=== PATIENT | male | born 1995 | race Caucasian/White ===

== ENCOUNTER 2018-08-17 21:56 | Emergency (ER) | payer OTHER ==
[2018-08-17] MEDS ORDERED: PERCOCET 5/325 PO ONE (22:12)
[2018-08-17] MEDS ORDERED: ZOFRAN ODT PO ONE (22:13)
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
[2018-08-18 00:36] VITALS: BP 108/60
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
== END 2018-08-18 02:00 | disposition home or self-care (01) ==
LOC: ED 21:56
DX: S01.112A Laceration without foreign body of left eyelid and periocular area, initial encounter (principal); S73.101A Unspecified sprain of right hip, initial encounter; S09.90XA Unspecified injury of head, initial encounter; V49.9XXA Car occupant (driver) (passenger) injured in unspecified traffic accident, initial encounter; Y93.89 Activity, other specified; Y92.410 Unspecified street and highway as the place of occurrence of the external cause; Y99.8 Other external cause status
CPT/HCPCS: 70450; 70486; 72125; Q0162

== ENCOUNTER 2020-04-27 09:57 | Observation (INO) | payer SELFPAY ==
[~2020-04-27 09:57] MED LIST: PHENYLEPHRINE/NS 1,000 MCG/10 ML SYRINGE (OR USE) IV ONE
[2020-04-27] MEDS ORDERED: ONDANSETRON 4 MG/2 ML INJ IV ONE (10:18)
[2020-04-27] MEDS ORDERED: SODIUM CHLORIDE 0.9% 1000 ML 1,000 ML IV ONE (10:18)
[2020-04-27] MEDS ORDERED: MORPHINE 4 MG/1 ML INJ IV ONE (10:18)
[2020-04-27 10:52] LABS: Hematocrit 44.8 % (35.5-45.6); Hemoglobin 15.4 gm/dl (11.8-15.2); Mean Corpuscular HGB Conc 34 % (32-34); Mean Corpuscular Volume 92 fl (84-94); Platelet Count 230 K/mm3 (140-440); Red Blood Count 4.87 M/mm3 (3.65-5.03); Red Cell Distribution Width 12.2 % (13.2-15.2)
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
[2020-04-27 10:55] LABS: Bacteria,Urine 1+ /HPF (Negative); Bilirubin,Urine NEG (Negative); Blood,Urine NEG (Negative); Color,Urine Yellow (Yellow); Mucus,Urine FEW /HPF; Protein,Urine <15 mg/dL mg/dL (Negative); Urobilinogen,Urine < 2.0 mg/dL (<2.0)
[2020-04-27] MEDS ORDERED: HYDROmorphone 1 MG/1 ML INJ IV ONE (11:03)
[2020-04-27 11:12] LABS: Alanine Aminotransferase 16 units/L (7-56); Albumin 4.6 g/dL (3.9-5); BUN/Creatinine Ratio 17; Blood Urea Nitrogen 17 mg/dL (9-20); Calcium 9.6 mg/dL (8.4-10.2); Hemolysis Index 41
--- NOTE | 2020-04-27 12:24 | Cat Scan Report ---
CT ABDOMEN AND PELVIS WITH IV CONTRAST INDICATION: generalized lower abd pain. COMPARISON: None available. TECHNIQUE: Axial CT images were obtained through the abdomen and pelvis after 100 mL IV contrast. All CT scans a t this location are performed using CT dose reduction for ALARA by means of automated exposure contro l. FINDINGS -- ABDOMEN: Lung Bases: No acute abnormality. Liver: Normal. Gallbladder: Normal. Bile Ducts: Normal. Pancreas: Normal. Spleen: Normal. Adrenals: Normal. Right Kidney and Proximal Ureter: Normal. Left Kidney and Proximal Ureter: Normal. Stomach and Bowel: Normal. Lymph Nodes: No significant adenopathy. Aorta: No significant abnormality. IVC: Normal. Additional Findings: None. FINDINGS -- PELVIS: Urinary Bladder and Distal Ureters: Normal. Reproductive Organs: No acute abnormality. Appendix: Acute appendicitis with significant inflammation of the appendix.. Bowel: No acute abnorma lity. Large stool burden identified throughout the colon. Free Fluid: None. Lymph Nodes: No significant adenopathy. Additional Findings: None. Skeletal System: No acute abnormality. IMPRESSION: Acute appendicitis without evidence of abscess at this time. Signer Name: Satnam Boland MD Signed: 04/27/2020 12:20 PM Workstation Name: [id number]
[2020-04-27] MEDS ORDERED: PIPERACIL/TAZOBACTA 4.5/NS 100 4.5 GM/100 ML VIAL IV ONE (12:25)
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
[2020-04-27] MEDS ORDERED: MORPHINE 4 MG/1 ML INJ IV PRN (13:39)
--- NOTE | 2020-04-27 13:44 | History and Physical Report ---
History of Present Illness Chief complaint: My stomach hurts History of present illness: 25 YO Male with Nicotine Dependence presents to ED for evaluation. Patient states that he has experienced abdominal pain that began approximately 6 hours prior to arrival. Patient states that pain is 10/10, constant, worsened with movement, relieved somewhat with rest, localized to the lower pelvic region, nonradiating. Patient transported to [facility] via private vehicle for further care and evaluation of the aforementioned symptoms. Patient seen and evaluated in the emergency department. All lab and imaging studies reviewed. Patient underwent CT scan of the abdomen and pelvis which revealed acute appendicitis. Patient also found to have lab findings consistent with systemic inflammatory response syndrome. Surgical team consulted in ED. Patient is pending surgical intervention. Patient placed in observation status and admitted to surgical floor for surgical intervention. Patient denies fever, chills, chest pain, palpitations, productive cough, skin rash, recent ill contacts, ingestion of food/water from new or different sources, or known exposure to COVID-19. No medication listed at time of admission for reconciliation. No prior admission for review. Past History Past Medical History: other (See HPI) Past Surgical History: No surgical history, Other (Reviewed) Social history: single, smoking Family history: no significant family history, other (Reviewed) Medications and Allergies Allergies Allergy/AdvReac Type Severity Reaction Status Date / Time No Known Allergies Allergy Unverified 08/17/18 22:29 Home Medications Medication Instructions Recorded Confirmed Last Taken Type No Known Home Medications [No 04/27/20 04/27/20 Unknown History Reported Home Medications] Active Meds: Active Medications Acetaminophen (Tylenol) 650 mg PO Q4H PRN PRN Reason: Pain MILD(1-3)/Fever >100.5/ROSAS Albuterol (Proventil) 2.5 mg IH Q4HRT PRN PRN Reason: Shortness Of Breath Sodium Chloride (Nacl 0.9% 1000 Ml) 1,000 mls @ 125 mls/hr IV DIRECT PARMINEDR Morphine Sulfate (Morphine) 2 mg IV Q6H PRN PRN Reason: Pain , Severe (7-10) Ondansetron HCl (Zofran) 4 mg IV Q8H PRN PRN Reason: Nausea And Vomiting Oxycodone/Acetaminophen (Percocet 5/325) 1 tab PO Q6H PRN PRN Reason: Pain, Moderate (4-6) Sodium Chloride (Sodium Chloride Flush Syringe 10 Ml) 10 ml IV BID PARMINDER Sodium Chloride (Sodium Chloride Flush Syringe 10 Ml) 10 ml IV PRN PRN PRN Reason: LINE FLUSH Review of Systems Constitutional: no weight loss, no weight gain, no fever, no chills Ears, nose, mouth and throat: no ear pain, no ear discharge, no decreased hearing, no nose pain, no nasal discharge Cardiovascular: no chest pain, no orthopnea, no palpitations, no edema Respiratory: no cough, no hemoptysis, no shortness of breath Gastrointestinal: abdominal pain, no nausea, no vomiting, no diarrhea, no constipation, no BRBPR, no melena, no hematochezia, no early satiety Genitourinary Male: no hematuria, no flank pain, no urinary frequency, no urinary hesitancy Rectal: no pain, no incontinence, no bleeding Musculoskeletal: no neck stiffness, no neck pain, no shooting arm pain, no arm numbness/tingling, no low back pain, no shooting leg pain Integumentary: no rash, no pruritis, no redness, no sores, no wounds, no jaundice Neurological: no head injury, no transient paralysis, no weakness, no parathesias, no numbness, no tingling, no seizures, no syncope Psychiatric: no anxiety, no memory loss, no sleep disturbances, no hypersomnia, no change in appetite, no disorientation Endocrine: no cold intolerance, no heat intolerance, no polydipsia, no polyuria Hematologic/Lymphatic: no easy bruising, no easy bleeding, no lymphadenopathy, no lymphedema Allergic/Immunologic: no urticaria, no allergic rhinitis, no wheezing, no anaphylaxis Exam - Constitutional Vitals: Temp Pulse Resp BP Pulse Ox 97.5 F L 81 18 113/73 100 04/27/20 10:02 04/27/20 10:02 04/27/20 10:02 04/27/20 10:02 04/27/20 10:02 General appearance: Present: mild distress - EENT Eyes: Present: PERRL ENT: hearing intact, clear oral mucosa - Neck Neck: Present: supple, normal ROM - Respiratory Respiratory effort: normal Respiratory: bilateral: CTA - Cardiovascular Heart Sounds: Present: S1 & S2. Absent: rub, click - Extremities Extremities: pulses symmetrical, No edema Peripheral Pulses: within normal limits - Abdominal General gastrointestinal: Present: soft, non-tender, tender, normal bowel sounds Localized gastrointestinal: tender: suprapubic Male genitourinary: Present: normal - Integumentary Integumentary: Present: clear, warm, dry - Musculoskeletal Musculoskeletal: gait normal, strength equal bilaterally - Psychiatric Psychiatric: appropriate mood/affect, intact judgment & insight - Neurologic Neurologic: CNII-XII intact, moves all extremities Results - Labs CBC & Chem 7: 04/27/20 10:22 04/27/20 10:22 Labs: Abnormal lab results 04/27/20 04/27/20 Range/Units 10:22 10:22 WBC 14.8 H (4.5-11.0) K/mm3 Hgb 15.4 H (11.8-15.2) gm/dl RDW 12.2 L (13.2-15.2) % Sodium 134 L (137-145) mmol/L Glucose 116 H (75-100) mg/dL Assessment and Plan - Patient Problems (1) Acute appendicitis Current Visit: Yes Status: Acute Qualifiers: Acute appendicitis type: with localized peritonitis Appendicitis gangrene presence: without gangrene Appendicitis perforation presence: without perforation Appendicitis abscess presence: without abscess Qualified Code(s): K35.30 - Acute appendicitis with localized peritonitis, without perforation or gangrene Plan to address problem: IV antibiotic therapy, bowel rest, CT scan abdomen and pelvis, CBC, CMP, IV fluid resuscitation therapy, pain control, supportive care. Surgical team consulted in ED for surgical intervention. Empiric IV antibiotic therapy in emergency department. (2) Systemic inflammatory response syndrome Current Visit: Yes Status: Acute Plan to address problem: CBC, CMP, CT scan abdomen and pelvis, urinalysis, IV antibiotic therapy, supportive care. (3) DVT prophylaxis Current Visit: Yes Status: Acute Plan to address problem: SCD to bilateral lower extremities while in bed, patient is ambulatory.
[2020-04-27] MEDS ORDERED: ACETAMINOPHEN 325 MG TAB PO PRN (14:00)
[2020-04-27] MEDS ORDERED: SODIUM CHLORIDE 0.9% 1000 ML 1,000 ML IV SCH (14:30)
[2020-04-27] MEDS ORDERED: ONDANSETRON 4 MG/2 ML INJ IV PRN ×2 (14:30→18:54)
[2020-04-27] MEDS ORDERED: oxyCODONE /ACETAMINOPHEN 5-325MG TAB PO PRN (14:30)
--- NOTE | 2020-04-27 14:30 | Anesthesia Consultation ---
Anesthesia Consult and Med Hx Date of service: 04/27/20 - Airway Anesthetic Teeth Evaluation: Good ROM Head & Neck: Adequate Mental/Hyoid Distance: Adequate Mallampati Class: Class I Intubation Access Assessment: Good - Pulmonary Exam CTA: Yes - Pre-Operative Health Status ASA Pre-Surgery Classification: ASA2, Emergency Proposed Anesthetic Plan: General - Pulmonary Hx Smoking: Yes (1ppd; Marijuana) Hx Asthma: No Hx Respiratory Symptoms: No Hx Sleep Apnea: No - Cardiovascular System Hx Hypertension: No Hx Heart Attack/AMI: No Hx Angina: No Hx Pacemaker: No Hx Internal Defibrillator: No - Central Nervous System Hx Neuromuscular Disorder: No Hx Seizures: No Hx Psychiatric Problems: No - Gastrointestinal Hx Ulcer: No Hx Gastroesophageal Reflux Disease: No - Endocrine Hx Renal Disease: No Hx Liver Disease: No Hx Insulin Dependent Diabetes: No Hx Non-Insulin Dependent Diabetes: No Hx Thyroid Disease: No - Hematic Hx Anemia: No - Other Systems Hx Alcohol Use: Yes (Beer- occasionally) Hx Substance Use: Yes (Marijuana- last taken 3 weeks ago) Hx Obesity: No - Additional Comments Anesthesia Medical History Comments: Patient denied previous anethesia related complications
[2020-04-27] MEDS ORDERED: KETOROLAC 30 MG/1 ML INJ ONE ×2 (14:36→20:20)
--- NOTE | 2020-04-27 14:44 | Anesthesia Day of Surgery ---
Anesthesia Day of Surgery - Day of Surgery Patient Examined: Yes Patient H&P Reviewed: Yes Patient is NPO: Yes Beta Blockers: No Cardiac Clearance: No Pulmonary Clearance: No
[2020-04-27] MEDS ORDERED: ALBUTEROL 2.5 MG/3 ML NEBU IH PRN (16:00)
[2020-04-27] MEDS ORDERED: MORPHINE 2 MG/1 ML INJ ONE (17:30)
[2020-04-27] MEDS ORDERED: ACETAMINOPHEN 325 MG TAB ONE (17:30)
[2020-04-27] MEDS: MORPHINE 2 MG/1 ML INJ IV PRN ×2 (17:33→17:47)
[2020-04-27] MEDS ORDERED: fentaNYL 100 MCG/2 ML INJ ONE (18:24)
[2020-04-27] MEDS ORDERED: fentaNYL 250 MCG/5 ML INJ ONE (18:24)
[2020-04-27] MEDS ORDERED: ePHEDrine SULFATE 50 MG/1 ML INJ ONE (18:24)
[2020-04-27] MEDS ORDERED: propofoL 200 MG/20 ML VIAL IV ONE (18:24)
[2020-04-27] MEDS ORDERED: SUCCINYLCHOLINE CHLORIDE 200 MG/10 ML INJ MDV ONE (18:25)
[2020-04-27] MEDS ORDERED: LIDOCAINE PF 100 MG/5 ML (CARDIAC SYRINGE) IV ONE (18:25)
[2020-04-27] MEDS ORDERED: dexAMETHasone 20 MG/5 ML VIAL ONE (18:25)
[2020-04-27] MEDS ORDERED: ONDANSETRON 4 MG/2 ML INJ ONE (18:25)
[2020-04-27] MEDS ORDERED: ROCURONIUM 50 MG/5 ML INJ IV ONE (18:25)
[2020-04-27] MEDS ORDERED: CISATRACURIUM 10 MG/5 ML INJ IV ONE (18:38)
[2020-04-27] MEDS ORDERED: HYDROmorphone 1 MG/1 ML INJ IV PRN (18:54)
[2020-04-27] MEDS ORDERED: MEPERIDINE 25 MG/1 ML INJ IV PRN (18:54)
[2020-04-27] MEDS ORDERED: LIDOCAINE (1%) 10 MG/1 ML VIAL 20 ML MDV ONE (18:57)
[2020-04-27] MEDS ORDERED: BUPIVACAINE-EPINEPHRINE/PF 0.5%-1:200,000 (10 ML) VIAL INFILTRATI ONE ×2 (18:58→20:07)
[2020-04-27] MEDS ORDERED: LIDOCAINE (1%) 10 MG/1 ML VIAL 20 ML MDV INFILTRATI ONE (20:08)
[2020-04-27] MEDS ORDERED: SODIUM CHLORIDE 0.9% IRRIG SOLN 2000 ML IR ONE (20:08)
[2020-04-27] MEDS ORDERED: SODIUM CHLORIDE 0.9% IRR 1,500 ML BOTTLE IR ONE (20:09)
--- NOTE | 2020-04-27 20:33 | Post Operative Note ---
Date of procedure: 04/27/20 Pre-op diagnosis: acute appendicitis Post-op diagnosis: same Findings: acute appendicitis, no gangrene,no abcess Anesthesia: LITTLEA Surgeon: NATI IGNACIO Estimated blood loss: minimal Pathology: list (appendix) Condition: stable Disposition: floor
[2020-04-27] MEDS: PIPERACIL/TAZOBACTA 4.5/NS 100 4.5 GM/100 ML VIAL IV SCH (22:18)
--- NOTE | 2020-04-27 23:25 | Operative Report ---
PREOPERATIVE DIAGNOSIS: Acute appendicitis, confirmed on CT. POSTOPERATIVE DIAGNOSIS: Acute appendicitis, confirmed on CT. OPERATIVE FINDINGS: Compatible with acute appendicitis with no gangrene and no abscess. ANESTHESIA: General. SURGEON: Lee Rowe MD. BLOOD LOSS: Minimal. PATHOLOGY: Consisted of the appendix. CONDITION: Stable. DISPOSITION: To the floor. DESCRIPTION OF PROCEDURE: After informed consent, the patient was brought to the operating room, induced under general anesthesia. His left arm was tucked and he was positioned in a supine position and sterilely prepped and draped. After appropriate time-out, the patient received IV antibiotics and compression stockings in place. A skin wheal was raised in the subumbilical position with 0.5% Marcaine mixed with 1% lidocaine. Incision was made with a #15 scalpel. Utilizing the S retractors, I dissected down to the underlying anterior abdominal fascia. It was elevated between 2 curved Maynor clamps. The curved Collins scissors were used to divide the fascia and enter the intraperitoneal cavity. I placed 0 Vicryls on each side of the fascia and then inserted my finger and felt no adhesions and we were clearly in the free intraperitoneal cavity. Then I utilizing the Pastor technique, I placed the Pastor port, inflated the balloon and then insufflated the abdomen to acceptable parameters with CO2. I used a 5 mm 30-degree scope placed two 5 mm ports in the left mid quadrant and right mid quadrant lateral to the epigastrics under direct visualization with the scope. The patient was positioned properly. Operative findings were compatible with acute appendicitis with no gangrene and no abscess. Traction was placed on the body of the appendix with Randal and Geck forceps. I used the [place] retractor and teased away the mesoappendix from the base of the appendix, flushed with the cecum. I fired 2 applications with vascular cartridges flushed with the cecum and then the base of the mesentery. There was excellent hemostasis and the staple line on the cecum was intact. I washed out locally with Nezhat irrigation system after removing the appendix in the EndoCatch bag. Next, I carefully examined any areas of bleeding. I placed some SNoW down in the area of the staple line on the mesoappendix, but there was no significant bleeding and then I withdrew the ports under direct visualization with the scope. There was no bleeding from the anterior abdominal wall. I closed the 12 mm port site with the 0 Vicryl sutures, which were placed previously. I closed the skin with 3-0 Monocryl with skin glue. The patient was hemodynamically stable throughout the procedure. The specimen consisted of the appendix. The sponge and needle count was correct x 2 at the completion of the procedure. As I stated, the appendix was sent for permanent pathology. Blood loss was only minimal. JOB# [id number] JAMA/JAMMIE
[2020-04-28] MEDS: MORPHINE 2 MG/1 ML INJ IV PRN (01:41)
[2020-04-28 06:23] LABS: Hematocrit 38.4 % (35.5-45.6); Hemoglobin 13.2 gm/dl (11.8-15.2); Mean Corpuscular HGB Conc 34 % (32-34); Mean Corpuscular Volume 92 fl (84-94); Platelet Count 201 K/mm3 (140-440); Red Blood Count 4.19 M/mm3 (3.65-5.03); Red Cell Distribution Width 12.6 % (13.2-15.2)
[2020-04-28 06:28] LABS: Basophils % (Auto) 0.1 % (0.0-1.8); Lymphocytes # (Auto) 0.4 K/mm3 (1.2-5.4); Lymphocytes % (Auto) 3.2 % (13.4-35.0); Monocytes # (Auto) 0.3 K/mm3 (0.0-0.8); Monocytes % (Auto) 2.4 % (0.0-7.3)
--- NOTE | 2020-04-28 06:42 | Event Note ---
Date: 04/28/20 POD 1 VSS AF toleraing clears, labs OK, OK to discharge home, f/u my office one week, call [phone] for appt., oral pain meds, no further antibiotics, adv diet at home as tolerated.
[2020-04-28] MEDS: PIPERACIL/TAZOBACTA 4.5/NS 100 4.5 GM/100 ML VIAL IV SCH (08:07)
--- NOTE | 2020-04-28 08:12 | Post Anesthesia Evaluation ---
- Post Anesthesia Evaluation Patient Participated: Yes Airway Patent: Yes Stable Respiratory Function: Yes Nausea/Vomiting: No Temp > 96.8F: Yes Pain Manageable: Yes Adequeate Hydration: Yes Anesthesia Complications: No Other Comments: Late entry for anesthetic 04/27/20.
[2020-04-28 15:52] VITALS: BP 113/70
--- NOTE | 2020-04-28 15:55 | Discharge Summary ---
Providers - Providers Date of Admission: 04/27/20 13:39 Attending physician: MILDRED MARTIN 04/27/20 12:27 Consult to Physician [CONS] Stat Comment: Consulting Provider: NATI IGNACIO Physician Instructions: Reason For Exam: acute appendicitis Primary care physician: AYUSH HINSON MD Hospitalization Condition: Fair - Discharge Diagnoses (1) Acute appendicitis Status: Acute Qualifiers: Acute appendicitis type: with localized peritonitis Appendicitis gangrene presence: without gangrene Appendicitis perforation presence: without perforation Appendicitis abscess presence: without abscess Qualified Co de(s): K35.30 - Acute appendicitis with localized peritonitis, without perforation or gangrene (2) Systemic inflammatory response syndrome Status: Acute (3) DVT prophylaxis Status: Acute Exam - Constitutional Vitals: Temp Pulse Resp BP Pulse Ox 98.2 F 85 16 113/70 99 04/28/20 15:43 04/28/20 11:05 04/28/20 15:43 04/28/20 15:43 04/28/20 13:11 Plan Follow up with: PRIMARY MD SRAVAN [Primary Care Provider] - 3-5 Days
== END 2020-04-28 17:20 | disposition home or self-care (01) ==
LOC: ED 09:57 → 3A 13:39 → 3B-SURG 17:02
PROVIDERS: ADMIT Internal Medicine; ATTEND Internal Medicine
DX: K35.80 Unspecified acute appendicitis (principal); R65.10 Systemic inflammatory response syndrome (SIRS) of non-infectious origin without acute organ dysfunction; D72.829 Elevated white blood cell count, unspecified; F17.200 Nicotine dependence, unspecified, uncomplicated
CPT/HCPCS: 36415; 44970; 74177; 80053; 81001; 83690; 85025; 85027; 88304; 96361; 96365; 96366; 96375; 96376; 99285; A4217; G0378; J0330; J1100; J1170; J1885; J2001; J2270; J2370; J2405; J2543; J2704; J3010; J7030; Q9967